=== PATIENT | female | born 1955 | race Caucasian/White ===

== ENCOUNTER 2025-05-14 08:29 | Outpatient (CLI) | payer MEDICARE, OTHER, SELFPAY ==
--- NOTE | ~2025-05-14 | DEXA_ITS ---
Bone Density Report Name: NHAN BROWN Age: 69 Sex: Female Ethnicity: White Date of : 1955 Indication: postmenopausal; screening for osteoporosis; height loss; hysterectomy; Referring Provider: CHENCHO, JAIME Study: Bone densitometry was performed. Exam Date: May 14, 2025 Accession number: [id number] Bone Density: Region BMD T-score Z-score Classification AP Spine(L2, L3, L4) 0.793 -2.6 -0.3 Osteoporosis Femoral Neck (Left) 0.570 -2.5 -0.6 Osteoporosis Total Hip (Left) 0.789 -1.3 0.3 Osteopenia Femoral Neck (Right) 0.561 -2.6 -0.7 Osteoporosis Total Hip (Right) 0.743 -1.6 0.0 Osteopenia Total Hip Mean 0.766 -1.5 0.2 Osteopenia World Health Organization criteria for BMD impression classify patients as: Normal (T-score at or above -1.0), Osteopenia (T-score between -1.0 and -2.5), or Osteoporosis (T-score at or below -2.5). 10-year Fracture Risk: FRAX not reported because: Some T-score for Spine Total or Hip Total or Femoral Neck at or below -2.5 Previous Exams: -- Region Exam Age BMD T-score BMD Change BMD Change Date g/cm2 vs Baseline vs Previous -- AP Spine (L2-L4) 05/14/2025 69 0.793 -2.6 -12.6%# -20.5%# 11/20/2015 60 0.998 -0.7 10.0%# 4.7%* 05/20/2012 56 0.953 -1.1 5.0%# 5.3%* 08/31/2008 52 0.905 -1.6 -0.2%# -7.2%# 06/01/2006 50 0.976 -0.9 7.6%# 0.3%# 03/06/2004 48 0.973 -1.0 7.2%* 7.2%* 03/05/2003 47 0.907 -1.6 Total Hip(Left) 05/14/2025 69 0.789 -1.3 -5.1%# -8.7%# 11/20/2015 60 0.864 -0.6 3.9%# -4.5%* 05/20/2012 56 0.905 -0.3 8.8%# 13.1%* 08/31/2008 52 0.800 -1.2 -3.8%# -6.8%# 06/01/2006 50 0.858 -0.7 3.2%# -0.8%# 03/06/2004 48 0.866 -0.6 4.1%* 4.1%* 03/05/2003 47 0.831 -0.9 Total Hip(Right) 05/14/2025 69 0.743 -1.6 -6.4%# -9.4%# 11/20/2015 60 0.820 -1.0 3.3%# -9.3%* 05/20/2012 56 0.904 -0.3 13.9%# 2.4% 08/31/2008 52 0.883 -0.5 11.3%# 4.0%# 06/01/2006 50 0.849 -0.8 7.0%# 5.3%# 03/06/2004 48 0.807 -1.1 1.6% 1.6% 03/05/2003 47 0.794 -1.2 -- *Denotes significance at 95% confidence level, LSC for AP Spine = 0.022 g/cm2, LSC for Total Hip = 0.027 g/cm2 Rate of change results reflect vertebral levels common to all scans # Denotes dissimilar scan types or analysis methods Clinical Information Provided by Patient: Has used the following medications: Vitamin D Has the following medical conditions: Hysterectomy Patient maximum height was 64 Menopause Age: 45 No regular weight bearing exercise Drinks caffeinated beverages Onset of menses at age 12 Number of children 1 Impression: The patient has osteoporosis, based on the Total Spine T-score. Unable to evaluate interval change due to the use of different scan modes. Discussion: INCREASED RISK OF FRACTURE. BONE DENSITY IS UNDESIRABLY LOW AT ONE OR MORE SKELETAL SITES, CONSISTENT WITH POSTMENOPAUSAL OSTEOPOROSIS. This patient's lowest T-score meets the World Health Organization's (WHO) criteria for osteoporosis at one or more sites (T-score -2.5 or below). In untreated patients, the risk of osteoporotic fracture increases approximately two-fold for each 1.0 SD decrease in T-score. Low bone density is not the only risk factor for fracture; also consider factors such as patient's age, frailty or poor health, risk of falling, risk of injury, previous osteoporotic fracture, family history of osteoporosis, cigarette smoking, low body weight, etc. Not everyone with low bone mineral density has osteoporosis; osteomalacia and other metabolic bone disorders should also be considered. Patients who have osteoporosis should be evaluated for specific diseases and conditions (secondary causes) that may cause or contribute to bone loss. The [place] [employer] (AACE) and National Osteoporosis Foundation (NOF) recommend pharmacologic intervention for all postmenopausal women whose T-score is in this range. The patient should follow a healthful lifestyle (good nutrition with adequate calcium and vitamin D, and appropriate weight-bearing exercise). Follow-Up: Consider a repeat BMD and Vertebral Fracture Assessment (VFA) exam in 2 years or sooner if medically necessary, to reassess this patient's status. Reported by: DIXON on 05/14/2025 9:02:00 AM. Reviewed, dictated and finalized at location A.
== END 2025-05-14 08:30 | disposition home or self-care (01) ==
PROVIDERS: PCP Physician Assistant; Visit Provider Physician Assistant
DX: Z78.0 Asymptomatic menopausal state (principal); M81.0 Age-related osteoporosis without current pathological fracture; M85.852 Other specified disorders of bone density and structure, left thigh; M85.851 Other specified disorders of bone density and structure, right thigh
CPT/HCPCS: 77080